=== PATIENT | male | born 1945 | race Caucasian/White ===

== ENCOUNTER 2022-06-16 09:25 | Emergency (ER) | payer OTHER, MEDICARE ==
[2022-06-16 10:47] LABS: HEMOGLOBIN 14.9 gm/dl (14.0-17.5); RED BLOOD COUNT 4.5 M/UL (4.20-5.50); WHITE BLOOD COUNT 12.8 K/UL (4.5-11.0)
[2022-06-16] MEDS ORDERED: MITIGARE0.6 MG PO (13:06)
[2022-06-16] MEDS ORDERED: CEPHALEXIN500 MG PO (13:06)
== END 2022-06-16 13:15 | disposition home or self-care (01) ==
LOC: ER1 09:25
PROVIDERS: Emergency Medicine
DX: M79.671 Pain in right foot (principal); E11.9 Type 2 diabetes mellitus without complications; I10 Essential (primary) hypertension
CPT/HCPCS: 73630; 80053; 84550; 85025; 85652; 86140; 99283